=== PATIENT | female | born 1985 | race Caucasian/White ===

== ENCOUNTER 2016-09-01 00:59 | Inpatient (IN) | payer SELFPAY ==
[~2016-09-01] VITALS: Ht 167.6 cm; Wt 72.6 kg
[~2016-09-01 00:59] MED LIST: DOCO200C PO; PERC5TAB12 PO
--- NOTE | 2016-09-01 01:53 | PD ---
HPI Chief Complaint contractions Date Seen: Sep 01, 2016 Travel History International Travel<30 Days: No Contact w/Intl Traveler<30Days: No History of Present Illness HPI Shows 41 week intrauterine presents clinically contractions. She is followed by Dr. Kay. Denies bleeding or rupture the membranes. heart rates reactive and john every 2-3 minutes Para: 1 : 2 History Obstetric History Obstetric History One vaginal delivery Social History Alcohol Use: No Tobacco Use: No Substance Abuse: No Allergies-Medications (Allergen,Severity, Reaction): Coded Allergies: Codeine (Verified Allergy, Mild, 06/04/14) n/v Home Meds Active Scripts Oxycodone-Acetaminophen 5-325 mg (Percocet 5-325 mg)1 Tab Tab2 Tab PO Q4H PRN ( PAIN SCALE 5 TO 10) #30 TAB Prov:Isaac Delgado MD 06/05/14 Reported Medications Docosahexaenoic Acid ( Dha)200 Mg Upg348 Mg PO 06/04/14 Physical Exam Narrative GENERAL: Well-nourished, well-developed patient. SKIN: Warm and dry. HEAD: Normocephalic and atraumatic. EYES: No scleral icterus. No injection or drainage. ENT: No nasal drainage noted. Mucous membranes pink. Airway patent. NECK: Supple, trachea midline. No JVD. CARDIOVASCULAR: Regular rate and rhythm without murmurs, gallops, or rubs. RESPIRATORY: Breath sounds equal bilaterally. No accessory muscle use. BREASTS: Bilateral exam showed no masses , no retractions, no nipple discharge. ABDOMEN/GI: Abdomen soft, non-tender, bowel sounds present, no rebound, no guarding Gravid to [term size-] weeks size Fundal Height: [37 cm-] GENITOURINARY: External Genitalia: intact and normal in appearance BUS glands: [-] Cervix: [-] Dilatation: [-3] Effacement: [-50] Station: [-3] Presentation: [vtx-] Membranes: [intact ] Uterine Contractions: [-q 2-3 min] FHT's: Category: [1-] Baseline: [144-] Reactive: [yes-] Variability: [Moderate-] Decels: none EXTREMITIES: No cyanosis or edema. BACK: Nontender without obvious deformity. No CVA tenderness. NEUROLOGICAL: Awake and alert. Motor and sensory grossly within normal limits. Five out of 5 muscle strength in all muscle groups. Normal speech. MDM Interpretation(s) 41 week intrauterine presents clinic contractions no bleeding or ruptured membranes heart rate tracing is reactive she is john every 2-3 minutes her cervix is 350 and -3 she was 2-3 in the office day or 2 ago so that I doubt there is a significant change cervix is posterior Plan Plan to discharge home to bedrest return for increasing pain ruptured membranes or significant bleeding Diagnosis Diagnosis: Primary Impression: False labor after 37 completed weeks of gestation Additional Impression: Post-dates Disposition: DISCHARGE HOME Condition: Stable Harjinder Kate II, MD Sep 01, 2016 01:52
[2016-09-01] MEDS ORDERED: OXYTOCIN 30 UNITS-500ML PREMIX 500 ML IV SCH (02:30)
[2016-09-01] MEDS ORDERED: SODIUM CHLORID 0.9% 500 ML INJ 500 ML IV PRN (02:30)
[2016-09-01] MEDS ORDERED: CITRIC ACID-SODIUM CITRATE LIQ 30 ML UDC PO SCH (02:30)
[2016-09-01] MEDS ORDERED: LIDOCAINE HCL 1% 50 ML VIAL INFIL PRN (02:30)
[2016-09-01] MEDS ORDERED: LIDOCAINE HCL 1% 50 ML VIAL I-DERMAL PRN (02:30)
[2016-09-01] MEDS ORDERED: OXYTOCIN 30 UNITS-500ML PREMIX 500 ML IV ONE (02:30)
[2016-09-01] MEDS ORDERED: LACTATED RINGER'S 1000 ML INJ 1,000 ML IV SCH (02:30)
[2016-09-01] MEDS ORDERED: LACTATED RINGER'S 1000 ML INJ 1,000 ML IV PRN (02:30)
[2016-09-01] MEDS ORDERED: MINERAL OIL 10 ML VIAL TOPICAL PRN (02:30)
[2016-09-01] MEDS ORDERED: SODIUM CHLOR 0.9% 1000 ML INJ 1,000 ML IV PRN (02:50)
[2016-09-01 03:04] LABS: AUTOMATED NEUTROPHIL # 6.2 TH/MM3 (1.8-7.7); BASOPHIL % 0.4 % (0.0-2.0); EOSINOPHIL # 0.2 TH/MM3 (0-0.4); EOSINOPHIL % 2.1 % (0.0-4.0); HEMATOCRIT 41.5 % (35.0-46.0); HEMO FLAGS DIFF FINAL; LYMPH % 25.1 % (9.0-44.0); LYMPHOCYTE # 2.4 TH/MM3 (1.0-4.8); MEAN CELL VOLUME 88.7 FL (80.0-100.0); MEAN CORPUSCULAR HEMOGLOBIN 30.5 PG (27.0-34.0); MEAN CORPUSCULAR HGB CONC 34.4 % (32.0-36.0); MONO % 6.3 % (0.0-8.0); NEUT % 66.1 % (16.0-70.0); PLATELET COUNT 177 TH/MM3 (150-450); RED BLOOD COUNT 4.68 MIL/MM3 (4.00-5.30); RED CELL DISTRIBUTION WIDTH 13.2 % (11.6-17.2); WHITE BLOOD COUNT 9.5 TH/MM3 (4.0-11.0)
[2016-09-01 03:13] LABS: BACTERIA, URINE RARE /hpf; BLOOD, URINE MOD (NEG); COMMENT (UR) CULTURE INDICATED; CULTURE IF INDICATED CULTURE INDICATED; GLUCOSE,URINE NEG (NEG); KETONE, URINE NEG (NEG); MUCUS URINE FEW /lpf (OCC); NITRITE,URINE NEG (NEG); SQUAMOUS EPITHELIAL CELL URINE 1 /hpf (0-5); URINE COLOR LIGHT-YELLOW (YELLW/STRAW)
[2016-09-01] MEDS ORDERED: fentaNYL 2MCG-BUPIV 0.125% INJ 100 ML ONE (03:34)
[2016-09-01] MEDS ORDERED: DO NOT ADMINISTER ANTICOAGULANTS XX PRN (04:15)
[2016-09-01] MEDS ORDERED: ePHEDrine/NS 50 MG/5 ML SYR IV PRN (04:15)
[2016-09-01] MEDS ORDERED: fentaNYL 2MCG-BUPIV 0.125% INJ 100 ML EPIDURAL SCH (04:15)
[2016-09-01] MEDS ORDERED: NO SYSTEM NARCOTICS XX PRN (04:15)
--- NOTE | 2016-09-01 06:42 | PD.OB.DELI ---
Delivery Date: Sep 01, 2016 Anesthesia: Epidural Episiotomy: None Vaginal Delivery: Normal, Spontaneous Presentation: Occiput anterior Nuchal Cord: x1 : Male, Single One Minute : 8 Five Minute : 9 Weight: 7# 5 oz Infant Care: Suctioned, Intubated and suctioned, Spontaneous crying Placenta: Spontaneous delivery, Intact, 3 vessel cord Laceration: Vaginal laceration, Perineal laceration, 2 deg Repair: Chromic interrupted Isaac Delgado MD Sep 01, 2016 06:42
[2016-09-01] MEDS ORDERED: ZOLPIDEM TARTRATE 5 MG TAB PO PRN (06:45)
[2016-09-01] MEDS ORDERED: SODIUM CHLORIDE 0.9% FLUSH 5 ML FLUSH IV PRN (06:45)
[2016-09-01] MEDS ORDERED: DOCUSATE SODIUM 50 MG/SENNA 8.6 MG TAB PO PRN (06:45)
[2016-09-01] MEDS ORDERED: ONDANSETRON ODT 4 MG TAB PO PRN (06:45)
[2016-09-01] MEDS ORDERED: ALUMINUM/MAGNESIUM/SIMETH 30 ML CUP PO PRN (06:45)
[2016-09-01] MEDS ORDERED: ACETAMINOPHEN 325 MG TAB PO PRN (06:45)
[2016-09-01] MEDS ORDERED: oxyCODONE/ACETAMINOPHEN 5 MG/325 MG TAB PO PRN ×2 (06:45)
[2016-09-01] MEDS ORDERED: SODIUM CHLORIDE 0.9% FLUSH 5 ML FLUSH IV SCH (09:00)
[2016-09-01] MEDS: WITCH HAZEL 50%/GLYCERIN 12.5% 40 PAD JAR TOPICAL PRN (12:08)
[2016-09-01] MEDS: BENZOCAINE 20% TOPICAL SPRAY 60 ML CAN TOPICAL PRN (12:08)
[2016-09-01] MEDS: IBUPROFEN 600 MG TAB PO PRN ×2 (12:16→18:21)
[2016-09-01] MEDS ORDERED: DIPHTH/TETANUS/ACEL PERTUSSIS (BOOSTER) 0.5 ML VIAL/PFS IM ONE (16:00)
[2016-09-01] MEDS ORDERED: MEASLES, MUMPS, RUBELLA VACCINE 0.5 ML VIAL SQ ONE (16:00)
[2016-09-02] MEDS: IBUPROFEN 600 MG TAB PO PRN ×3 (01:48→17:15)
--- NOTE | 2016-09-02 08:33 | HHI.OB ---
Subjective Post Day: 1 Remarks doing well no complaints Objective Objective Remarks GENERAL: Well-nourished, well-developed patient. . ABDOMEN/GI: Abdomen soft, non-tender. Fundus: Firm, non-tender at umbilicus. GENITOURINARY: Light to moderate bleeding. EXTREMITIES: No cyanosis or edema, non-tender, without signs of DVT. Medications and IVs Current Medications Medications (Trade) Dose Ordered Sig/Ignacio Route Start Time Stop Time Status Last Admin (NS Flush) 2 ml BID IV 09/01/16 09:00 (NS Flush) 2 ml UNSCH PRN IV 09/01/16 06:45 (Tylenol) 650 mg Q4H PRN PO 09/01/16 06:45 (Motrin) 600 mg Q6H PRN PO 09/01/16 06:45 09/02/16 01:48 (Percocet 5-325 Mg) 1 tab Q4H PRN PO 09/01/16 06:45 (Percocet 5-325 Mg) 2 tab Q4H PRN PO 09/01/16 06:45 (Americaine 20% Top Spr) 1 spray Q4H PRN TOPICAL 09/01/16 06:45 09/01/16 12:08 (Tucks Pads) 1 applic QID PRN TOPICAL 09/01/16 06:45 09/01/16 12:08 (Majo-Colace) 2 tab Q12H PRN PO 09/01/16 06:45 (Ambien) 5 mg HS PRN PO 09/01/16 06:45 (Mag-Al Plus Susp Liq) 15 ml Q8H PRN PO 09/01/16 06:45 (Zofran Odt) 4 mg Q6H PRN PO 09/01/16 06:45 Assessment/Plan Problem List: (1) Spontaneous vaginal delivery Discharge Planning [facility] Isaac Delgado MD Sep 02, 2016 08:33
--- NOTE | 2016-09-02 08:34 | HHI.DCPOC ---
Discharge Care Plan Diagnosis: (1) Spontaneous vaginal delivery Report Symptoms to Your Doctor -Temperate above 100.5 degrees -Redness, of incision or excessive or foul smelling drainage -Unusual pain or calf pain -Increased vaginal bleeding -Painful or difficulty urinating -Feelings of extreme sadness or anxiety after 2 weeks Goals to Promote Your Health * To prevent worsening of your condition and complications * To maintain your health at the optimal level Directions to Meet Your Goals Take your medications as prescribed Follow your dietary instruction Follow activity as directed Ensure plenty of rest for recovery Drink fluids for hydration Keep your appointments as scheduled Take your immunizations and boosters as scheduled If your symptoms worsen call your PCP, if no PCP go to Urgent Care Center or Emergency Room Smoking is Dangerous to Your Health. Avoid second hand smoke Call the 24-hour crisis hotline for domestic abuse at Isaac Delgado MD Sep 02, 2016 08:34
[2016-09-02] MEDS ORDERED: OXYC1TAB63 PO (08:35)
--- NOTE | 2016-09-02 08:37 | HHI.DS ---
Admission Date Sep 01, 2016 at 02:40 Discharge Date: Sep 02, 2016 Admitting Diagnosis Diagnosis: (1) Spontaneous vaginal delivery Diagnosis: Principal Delivery Date: Sep 01, 2016 Vaginal Delivery: Normal, Spontaneous Infant: Male, Single Brief History Shows 41 week intrauterine presents clinically contractions. She is followed by Dr. Kay. Denies bleeding or rupture the membranes. heart rates reactive and john every 2-3 minutes Hospital Course in active labor delivered without difficulty Pt Condition on Discharge: Good Discharge Disposition: Discharge Home Discharge Instructions Diet Instructions: As Tolerated, No Restrictions Activities You Can Perform: Pelvic Rest Activities to Avoid: Driving for 24 hrs Follow up Referrals: ENVIRONMENTAL COMPLIANCE INSPECTOR - 1 Week @ [facility] with Isaac Delgado MD New Medications: Oxycodone-Acetaminophen (Oxycodone-Acetaminophen) 5-325 mg Tab 2 TAB PO Q4H PRN PAIN SCALE 6 TO 10 #20 TAB Isaac Delgado MD Sep 02, 2016 08:37
[2016-09-02] MEDS: BENZOCAINE 20% TOPICAL SPRAY 60 ML CAN TOPICAL PRN (17:15)
[2016-09-02] MEDS: WITCH HAZEL 50%/GLYCERIN 12.5% 40 PAD JAR TOPICAL PRN (17:15)
== END 2016-09-02 17:47 | disposition home or self-care (01) | DRG 775 ==
LOC: HOBED 00:59 → H2EB 02:29 → UNDOADMIN 02:29 → H2EB 02:40 → H1EA 09:31
PROVIDERS: ADMIT Obstetrics & Gynecology; ATTEND Obstetrics & Gynecology
PROC: 10E0XZZ Delivery of Products of Conception, External Approach (ICD-10-PCS; principal; 2016-09-01)
PROC: 0KQM0ZZ Repair Perineum Muscle, Open Approach (ICD-10-PCS; 2016-09-01)
PROC: 00HU33Z Insertion of Infusion Device into Spinal Canal, Percutaneous Approach (ICD-10-PCS; 2016-09-01)
PROC: 3E0R3CZ (ICD-10-PCS; 2016-09-01)
DX: O48.0 Post-term pregnancy (principal); O69.81X0 Labor and delivery complicated by cord around neck, without compression, not applicable or unspecified; Z3A.41 41 weeks gestation of pregnancy; O70.1 Second degree perineal laceration during delivery; Z37.0 Single live birth
CPT/HCPCS: 81001; 85025; 86900; 86901; 87086; 99285; J2590; J7120